=== PATIENT | female | born 1950 | race Caucasian/White ===

== ENCOUNTER 2019-05-19 11:54 | Observation (INO) | payer MEDICARE ==
--- NOTE | 2019-05-12 09:29 | HP ---
AMENDED REPORT NOW INCLUDES DESIGNATED COSIGNER - ESIGNED BEFORE ADJUSTMENTS HISTORY AND PHYSICAL: DATE OF ADMISSION/SURGERY: 05/19/19 DATE OF OFFICE VISIT: 05/11/19 SURGEON: Criselda De León MD * (CHRISTINA STOCK) PROCEDURE: Left total knee arthroplasty. CHIEF COMPLAINT: Left knee pain. HISTORY OF PRESENT ILLNESS: Ms. Edmonds is a 69-year-old female with endstage osteoarthritis of the left knee. She has failed conservative treatment and elected to proceed with the left total knee arthroplasty. PAST MEDICAL HISTORY: History of breast cancer. PAST SURGICAL HISTORY: Lumpectomy bilaterally, cholecystectomy, bladder suspension, urethral sling and hysterectomy. MEDICATIONS: No medications. ALLERGIES: CODEINE. FAMILY HISTORY: Coronary artery disease, cancer, diabetes and stroke. SOCIAL HISTORY: She is a 69-year-old female. She lives with her spouse. She does not smoke. REVIEW OF SYSTEMS: A complete 14-point review of systems was reviewed with the patient and was all negative or noncontributory. She denies history of DVT, PE , hepatitis, HIV or anesthesia problems. PHYSICAL EXAMINATION GENERAL: She is well-developed, well-nourished, in no acute distress. VITAL SIGNS: She weighs 163 pounds, blood pressure 138/62, heart rate 90. HEENT: Normocephalic, atraumatic. NECK: Supple. No palpable lymph nodes. PULMONARY: Lungs are clear to auscultation bilaterally. CARDIO: Regular rate and rhythm. Strong S1 and S2. ABDOMEN: Soft, nontender, nondistended. NEUROLOGIC: She is alert and oriented x3. MUSCULOSKELETAL: Left lower extremity, skin is intact. There are no open wounds or abrasions. There is varus deformity at the left knee with a moderate effusion. Range of motion is 10 to 125 degrees with flexion with patellofemoral crepitus. She has some tenderness along the medial joint line. She is able to dorsiflex and plantarflex. 2+ dorsalis pedis pulses, intact sensation. ASSESSMENT AND PLAN: Ms. Edmonds is a 69-year-old female with end stage osteoarthritis of the left knee. She has failed conservative treatment and elected to proceed with left total knee arthroplasty. Surgery is scheduled for 05/19/[address] De León. Dr. De León discussed the risks and benefits of the surgery at today's visit and all of her questions were answered. She will follow up with Dr. De León 2 weeks after the surgery. CHRISTINA GARCIA [id number]/[facility] #: [id number] [facility]
[~2019-05-19 11:54] MED LIST: Buffered Lidocaine 1% SYRIN* 1 ML/SYRINGE INTRADERM ONE; Dexamethasone IV* 4 MG/ML 1 ML (4 MG) IV SLOW PU ONE; Famotidine IV* 10 MG/ML 2 ML (20 mg) IV ONE; Gabapentin CAP(*) 300 MG PO ONE; Lactated Ringers 1000 ML Bag* 1,000 ML IV SCH; Tranexamic Acid 1,000 MG in NS 0.9% 50 ML IV ONE; celeCOXIB CAP* 200 MG PO ONE
[2019-05-19] MEDS ORDERED: celeCOXIB CAP* 200 MG ONE (12:06)
[2019-05-19] MEDS ORDERED: Gabapentin CAP(*) 300 MG ONE (12:06)
[2019-05-19] MEDS ORDERED: Dexamethasone IV* 4 MG/ML 1 ML (4 MG) ONE (12:06)
[2019-05-19] MEDS ORDERED: ceFAZolin 2 GM in NS PREMIX(*) 2 GM/100 ML BAG IVPB ONE (12:07)
[2019-05-19] MEDS ORDERED: Famotidine IV* 10 MG/ML 2 ML (20 mg) ONE (12:07)
[2019-05-19] MEDS ORDERED: fentaNYL* 50 MCG/ML 2 ML VIAL (100 MCG VIAL) ONE ×2 (13:47→18:54)
[2019-05-19] MEDS ORDERED: Midazolam* 1 MG/ML 5 ML VIAL (5 MG) ONE (13:47)
[2019-05-19] MEDS ORDERED: ROPIVACAINE 5 MG/ML 30 ML BTL (0.5%) ONE ×2 (13:51→14:05)
[2019-05-19] MEDS ORDERED: Bupivacaine 0.5% SDV PF* 30ML VIAL ONE (14:17)
[2019-05-19] MEDS ORDERED: Propofol* 500 MG/50 ML BTL ONE (14:31)
[2019-05-19] MEDS ORDERED: Lidocaine 2% PF * 5 ML VIAL ONE (14:31)
[2019-05-19] MEDS ORDERED: traMADol TAB* 50 MG PO PRN (15:32)
[2019-05-19] MEDS ORDERED: Ondansetron ODT TAB* 4 MG PO PRN (15:32)
[2019-05-19] MEDS ORDERED: Morphine INJ* 2 MG/ML 1 ML SYRINGE (TWO MG - NEW SYRINGE VERSION) IV PRN (15:32)
[2019-05-19] MEDS ORDERED: oxyCODONE TAB* 5 MG TAB PO PRN (15:32)
[2019-05-19] MEDS ORDERED: diPHENhydraMINE PO* 25 MG PO PRN (15:32)
[2019-05-19] MEDS ORDERED: Polyethylene Glycol 3350* 17 GM PACKET PO PRN (15:32)
[2019-05-19] MEDS ORDERED: Cyclobenzaprine TAB* 10 MG PO PRN (15:32)
[2019-05-19] MEDS ORDERED: Ondansetron TAB* 4 MG PO PRN (15:32)
[2019-05-19] MEDS ORDERED: Magnesium Hydroxide LIQ* 30 ML UDC PO PRN (15:32)
[2019-05-19] MEDS ORDERED: Ondansetron INJ* 2 MG/ML VIAL IV PRN ×2 (15:32→18:29)
[2019-05-19] MEDS ORDERED: diPHENhydraMINE IV* 50 MG/ML 1 ml VIAL (BENADRYL) IV PRN (15:32)
--- NOTE | 2019-05-19 17:50 | OP ---
Operative Report - Blank - Operative Report Date of Operation: 05/19/19 Note: MOHINI PETERSON 1950 Date of Surgery: 05/19/19 Criselda De León MD Production Operations Manager: Diane VASQUEZ did help throughout the procedure with preparation of the knee, wound retraction, manipulation of the knee, and wound closure. Anesthesiologist: Dr. Begum Anesthesia Type: Spinal Preoperative Diagnosis: Left severe degenerative osteoarthritis of the knee Postoperative Diagnosis: As above Procedure Performed: Left Total Knee Arthroplasty Tourniquet time: 44 minutes Complications: None Specimen: Bone and cartilage from the left knee joint sent to pathology. Hardware Used: Cemented [employer]hew total knee hardware was used - For the femur a size 4 left narrow legion posterior stabilized femoral component, for the tibia a size 3 left gt II tibial baseplate, for the insert a size 11 mm 3-4 posterior stabilized articular polyethylene insert, and for the patella a size 29 3-peg all poly patella. Brief History/Indication: MOHINI PETERSON was known in clinic and had a history of severe left knee pain and swelling. She failed conservative treatment with anti-inflammatories, pain pills, intra-articular injections and physical therapy. She elected to undergo left total knee arthroplasty due to continued pain and decreased quality of life. Radiographs showed severe end stage osteoarthritis of the knee with bone on bone contact. Informed consent was obtained from the patient. She understood the risks of surgery included but were not limited to: bleeding, infection, damage to nearby structures, intraoperative fracture, nerve palsy, failure of the hardware, early loosening, knee stiffness or loss of motion, anesthesia complications, stroke, heart attack , blood clot and . She wished to proceed. Intra-Operative Findings: Intraoperatively the patient was noted to have severe loss of cartilage in all 3 compartments of the knee. Description of the Procedure: MOHINI PETERSON was identified in the preanesthesia unit. Her left knee was marked as the correct operative side. Informed consent was signed and placed in the chart. The patient was taken to the operating room and placed under anesthesia without complication. A vanegas catheter was placed. A tourniquet was placed on the left thigh. The left lower extremity was prepped and draped in the usual sterile fashion. Preoperative time-out was made to correctly identify the patient, side and site. Appropriate intraoperative antibiotics were given within one hour of incision. Tourniquet was inflated. A midline incision was made and carried sharply down to the extensor mechanism. A new 10 blade was used to make a standard medial parapatellar arthrotomy. The patella was subluxed laterally. Electrocautery was used to dissect soft tissue off the superomedial tibia to the midsagittal plane. The knee was flexed up. The anterior horn of the lateral meniscus and the ACL were sharply incised. A drill was used to enter the distal femur. The intramedullary distal femoral cutting guide was pinned on the distal femur. The oscillating saw was used to make the distal femoral cut. The external rotation guide was pinned on the distal femur and the distal femur was sized to a size 4. The size 4 multi-cutting jig was pinned on the distal femur. The oscillating saw was used to make the appropriate 4 chamfer cuts. Next the PCL was completely released. The extramedullary tibial cutting guide was pinned on the proximal tibia and the oscillating saw was used to make the proximal tibial cut perpendicular to the mechanical axis of the tibia. The bone was carefully removed. The knee was brought out into full extension. The spacer block was placed and had excellent fit with the knee in full extension. The medial and lateral ligaments were well balanced. The flexion and extension gaps were well balanced. The knee was flexed up. Lamina milk condenser was placed both medially and laterally. Any remaining meniscus was removed with electrocautery. Curved osteotome was used to remove any posterior osteophytes. The tibial tray and drop jeremie were placed and confirmed a satisfactory tibial cut. The size 4 left narrow femoral trial was impacted onto the distal femur. This trial had excellent fit and stability. The box for the posterior stabilized implant was prepared using a box cut osteotome and a reamer. Next a tibial tray trial and 9 mm insert trial was placed. The knee was taken through a range of motion and had full extension to 130 degrees of flexion. Patellofemoral tracking was satisfactory. The patella was inverted and sized to a size 29. Three peg holes were drilled through the size 29 drill guide. The trial patella was placed and the knee was taken through a range of motion. There was satisfactory patellofemoral tracking. All trials were removed. The tibia was subluxed anteriorly and sized to a size 3. The proximal tibial was prepared with a size 3 keel punch. All bony cut surfaces were irrigated with sterile saline and dried. Final implants were cemented into place starting with the tibia, followed by the femur, and last the patella. A 11 mm insert trial was placed and the knee was brought into full extension. Tourniquet was turned down and the knee was copiously irrigated with sterile saline. Electrocautery was used to obtain meticulous hemostasis. Once the cement had fully cured, the insert trial was removed. Any excess cement was removed from around the hardware and capsule. Final insert chosen was a 11 mm posterior stabilized Gt II articular insert size 3-4. Stability of the insert was checked and noted to be stable. The extensor mechanism was closed using number 1 vicryls. The rest of the incision was closed in a layered fashion using 0 and 2-0 vicryls. The skin was closed using 3-0 nylon suture. Sterile xeroform, 4x4s and webril were used to cover the incision. Richard wrap and cold pack were used to cover the dressings. The patients anesthesia was reversed without difficulty. She was taken to the PACU in stable condition. Intended weight-bearing will be as tolerated.
[2019-05-19] MEDS ORDERED: hydrALAZINE IV* 20 MG/ML VIAL IV SLOW PU PRN (18:06)
[2019-05-19] MEDS ORDERED: hydrALAZINE IV* 20 MG/ML VIAL ONE (18:06)
[2019-05-19] MEDS ORDERED: HYDROcodone/ACETAMIN 5-325 MG* 1 TAB PO PRN (18:29)
[2019-05-19] MEDS ORDERED: Naloxone* 0.4 MG/ML 1 ML VIAL IV PRN (18:29)
[2019-05-19] MEDS: fentaNYL* 50 MCG/ML 2 ML VIAL (100 MCG VIAL) IV PRN ×2 (18:55→19:59)
--- NOTE | 2019-05-19 19:59 | CONS ---
CC: Dr. Criselda De León; Sammi Villar NP * HOSPITAL MEDICINE CONSULTATION: DATE OF CONSULT: 05/19/19 REQUESTING PROVIDER ON CONSULT: Dr. Criselda De León. PRIMARY CARE PHYSICIAN: Sammi Villar NP. ATTENDING PHYSICIAN: Dr. Sisi Moon. REASON FOR CONSULT: Postoperative hypertension. HISTORY OF PRESENT ILLNESS: Ms. Edmonds is a 69-year-old female with past medical history of breast cancer, status post lumpectomy and radiation, who presents to [facility] today for an elective left total knee arthroplasty. The patient had surgery late today and in the postoperative period was noted to be hypertensive with readings up into the 180s/100s. The patient notes that blood pressure recently has been around 130/70 and this is very consistent for her. She does note that a few days prior to surgery, she did have an elevated blood pressure reading with systolic in the 180s, though this is the first time that she has seen an elevated reading. Of note, the patient did have an abnormal urinalysis on 05/06/19, and was prescribed a 7-day course of Cipro which she has completed at this point. The patient is seen in PACU remaining in the bed. At this time she offers no complaints. She denies any chest pain, shortness of breath, dizziness or headache. She denies any actual pain, but notes that she has some sensation of mild discomfort in her left knee. PAST MEDICAL HISTORY: 1. Bilateral breast cancer, status post lumpectomy and radiation. PAST MEDICAL HISTORY: 1. Bilateral lumpectomy. 2. Cholecystectomy. 3. Urethral sling and hysterectomy. 4. Bladder suspension. HOME MEDICATIONS: None. ALLERGIES: CODEINE. FAMILY HISTORY: The patient reports her father had a history of heart disease and CVA, though he ultimately of brain cancer. She reports a brother with significant heart disease, recently undergoing a bypass surgery. He also has hypertension and diabetes. SOCIAL HISTORY: She lives at home with her . She notes she typically is quite active and tries to maintain a healthy diet. Denies any tobacco, alcohol or recreational drug use. In 2019, she was drinking alcoholic drinks daily though has not had any alcohol since 03/18/19. The patient's , Yash, will be her surrogate decision maker in the event she is unable to make her own decisions. REVIEW OF SYSTEMS: An 11-point review of systems was performed and all the pertinent positive and negative findings are in the HPI. All other systems are negative. PHYSICAL EXAM: General: Ms. Edmonds is a well-developed, well-nourished, middle- aged white female, lying in bed, in no acute distress. She appears her stated age. Vital Signs: Temp 98.1, heart rate 84, respiratory rate 20, oxygen saturation 98% on room air, blood pressure 165/104. HEENT: Head is atraumatic , normocephalic. Visual batres are grossly intact. Pupils are equal, round, and reactive to light and accommodation. Respiratory: Symmetrical chest expansion. Lungs: Clear to auscultation throughout. No rhonchi, wheezes or rales. Cardiovascular: Regular rate and rhythm. S1, S2 present. No murmurs, rubs or gallops. No JVD. Extremities: Skin warm and smooth bilaterally. No edema. No clubbing or cyanosis. Abdomen: Soft, nontender to palpation. Bowel sounds normoactive. Neuro: Awake, alert, and oriented x4. Speech is clear and fluent. Moves all extremities. Skin: There is a surgical dressing intact to the left knee. DIAGNOSTIC STUDIES/LAB DATA: No pertinent data. ASSESSMENT AND PLAN: Ms. Edmonds is a 69-year-old female with past medical history of breast cancer, who presents today for an elective left total knee arthroplasty and was noted to be hypertensive in the postoperative setting. The patient is being admitted by Ortho, and Hospital Medicine will consult for: 1. Status post left total knee arthroplasty. Management per Ortho. 2. Hypertension. The patient is significantly hypertensive in PACU, but does not have any history of hypertension. I suspect that this is related to anxiety and that this is simply a stress response. The patient has had normal blood pressures very recently. She is asymptomatic at this time. I have ordered hydralazine p.r.n. for systolic pressures over 170. First dose will be given by the PACU nurse now. At this point, I will avoid putting her on any oral antihypertensives as I do not anticipate that she will need anything going forward. We will continue to monitor her blood pressure and make any changes if necessary. 2. History of breast cancer: In remission. 3. DVT prophylaxis: Eliquis per Ortho. 4. Code status: Full code. COLLIN FREEDMAN, HAND TOUCH UP PAINTER [id number]/[facility] #: [id number] [facility] HOSPITALGerald
[2019-05-19] MEDS: Docusate CAP* 100 MG PO SCH (21:42)
[2019-05-19] MEDS: Magnesium Hydroxide LIQ* 30 ML UDC PO SCH (21:42)
[2019-05-19] MEDS: oxyCODONE/Acetamin 5/325 MG* TAB PO PRN (21:43)
[2019-05-19] MEDS: Lactated Ringers 1000 ML Bag* 1,000 ML IV SCH (21:44)
[2019-05-19] MEDS: Acetaminophen TAB* 325 MG PO SCH (21:44)
[2019-05-19] MEDS: ceFAZolin 1 GM ADVAN(*) 1 GM in NS 0.9% 50 ML* 50 ML IVPB SCH (22:46)
[2019-05-20] MEDS: oxyCODONE/Acetamin 5/325 MG* TAB PO PRN ×3 (05:12→13:39)
[2019-05-20] MEDS: Acetaminophen TAB* 325 MG PO SCH ×2 (05:50→12:24)
[2019-05-20] MEDS: ceFAZolin 1 GM ADVAN(*) 1 GM in NS 0.9% 50 ML* 50 ML IVPB SCH ×2 (06:08→13:01)
[2019-05-20] MEDS: Lactated Ringers 1000 ML Bag* 1,000 ML IV SCH (06:17)
[2019-05-20 08:10] LABS: Hematocrit 38 % (35-47); Hemoglobin 13.2 g/dL (12.0-16.0); Mean Platelet Volume 8.9 fL (7.4-10.4); Platelet Count 246 10^3/uL (150-450)
[2019-05-20 08:28] LABS: BUN/Creatinine Ratio 25.9 (8-20); Calcium 8.3 mg/dL (8.6-10.3); EGFR African American 135.4 (>60); EGFR Non-African American 111.9 (>60); Potassium 3.7 mmol/L (3.5-5.0)
[2019-05-20] MEDS ORDERED: Vitamin THERAPEUTIC TAB PO SCH (09:00)
[2019-05-20] MEDS ORDERED: Apixaban* 2.5 MG TAB PO SCH (09:00)
[2019-05-20] MEDS: Docusate CAP* 100 MG PO SCH (09:28)
[2019-05-20] MEDS: Magnesium Hydroxide LIQ* 30 ML UDC PO SCH (09:28)
--- NOTE | 2019-05-20 11:33 | DS ---
Orthopedic Discharge Summary - Discharge Summary Date of Admission:05/19/19 Date of Discharge: 05/20/19 Date of Surgery: 05/19/19 Attending Orthopedic Provider: Dr De León Pre-operative Diagnosis: Left knee osteoarthritis Operative Procedure: left total knee replacement Disposition of Patient:home Home care vs Outpatient services: homecare Condition of Patient: stable Pain medication RX at discharge: Percocet 5/325 mg 1-2 q 4 hr MDD 10 DVT prophylaxis RX at discharge: eliquis 2.5 mg bid x 30 days psot op History: MOHINI PETERSON is a 69 year old F with years of increasingly severe left knee pain. Patient has failed conservative management and has elected to undergo a left total knee replacement Hospital Course: MOHINI was admitted to [facility] on 05/19/19. Patient underwent a left total knee replacement without complication followed by a brief recovery in PACU and transfer to the Short Stay Surgical Unit in stable condition. Our hospitalist service, physical therapy and occupational therapy also participated in this patients care. Post-op day 1: patient was alert and in no acute distress. Dressing was clean, dry and intact. Operative extremity dorsiflexion and plantarflexion intact, sensation intact to light touch distally, DP2+. Prior to discharge: dressing was changed, incision was clean, dry and intact. Patient was deemed to be medically and orthopedically stable for discharge. Physical therapy goals were met. Home Medications Medication Instructions Recorded Confirmed Type Acetaminophen TAB* [Tylenol TAB*] 975 mg PO Q8HR tab 05/20/19 Rx Apixaban* [Eliquis*] 2.5 mg PO BID #60 tab 05/20/19 Rx Docusate CAP* [Colace Cap*] 100 mg PO BID PRN #50 cap 05/20/19 Rx oxyCODONE/Acetamin 5/325 MG* 2 tab PO Q4H PRN #60 tab MDD 10 05/20/19 Rx [Percocet 5/325 TAB*] Discharge Instructions following Orthopedic Surgery: Activity: * Weight Bearing as tolerated * Continue physical therapy and occupational therapy exercises as shown * you have elected to have home physical therapy, continue therapy exercises at home. Wound care: * OK to shower on post-op day 3, no bathing, swimming, or submerging wound. * Use gentle soap, pat dry. Cover with gauze, DANGELO wrap or tape. * you elected to have a visiting home nurse, they will perform wound checks. Call Orthopedic office for: * Increased drainage * Redness * Increased pain * Fever Go to ER with shortness of breath or chest pain. Diet: * Regular diet * Increase fluids and fiber to prevent constipation. * Continue to use stool softeners, call office if no bowel motion within 48 hours. Medications See Home Medication List in your packet for medications that you should take after discharge. DVT Prophylaxis: Eliquis Dosin.5 mg, 1 tab every 12 hours x 30 days. Increases bleeding tendency Pain Control: Percocet 5/325 mg 1 tab for moderate pain and 2 tabs for severe pain by mouth every 4 hours as needed. Maximum of 10 tabs per day. Hold for sedation , wean off as soon as pain allows Please note that Percocet contains Tylenol (acetaminophen). Maximum daily dose of Tylenol is 4000 mg from all sources. Antibiotics are required prior to any dental work. FOLLOW UP: Follow up with Dr. Dang] Within [14] days, call for appointment Please call our office with any questions or concerns ([phone]) [facility]
[2019-05-20 11:44] VITALS: BP 128/53
--- NOTE | 2019-05-20 11:48 | PN ---
Progress Note - Progress Note Date of Service: 05/20/19 Note: Pt seen at bedside POD 1 SP LTK. She felt well without complaints and desires DC home. Denies CP, SOB, dizziness, nausea. Appears well, dressing changed incision CDI, df/pf intact, dp2+ distally. Will DC home today if PT goals met.
== END 2019-05-20 11:31 | disposition home or self-care (01) ==
LOC: OR 11:54 → EDSTATUS 15:00 → SSU 15:32
PROVIDERS: ADMIT Physician Assistant; ATTEND Orthopaedic Surgery Adult Reconstructive Orthopaedic Surgery
DX: M17.12 Unilateral primary osteoarthritis, left knee (principal); I10 Essential (primary) hypertension; Z85.3 Personal history of malignant neoplasm of breast; Z88.5 Allergy status to narcotic agent; Z90.13 Acquired absence of bilateral breasts and nipples; Z83.3 Family history of diabetes mellitus; Z82.49 Family history of ischemic heart disease and other diseases of the circulatory system
CPT/HCPCS: 36415; 80048; 85014; 85018; 85049; 86850; 86900; 86901; 96361; 96365; 96366; 96375; 96376; A9270-GY; G0378; J0360; J0690; J1100; J2250; J2405; J2704; J2795; J3010; J3490

== ENCOUNTER 2021-01-30 11:04 | Observation (INO) ==
[2021-01-30 11:48] LABS: ABS Basophils 0.1 10^3/ul (0-0.2); ABS Eosinophils 0.1 10^3/ul (0-0.6); ABS Lymphocytes 1.7 10^3/ul (1.0-4.8); ABS Monocytes 0.4 10^3/ul (0-0.8); ABS Neutrophils 5.6 10^3/ul (1.5-7.7); Eosinophil % 1.1 %; Hematocrit 45 % (35-47); Hemoglobin 15.2 g/dL (12.0-16.0); Lymphocyte % 21.3 %; Mean Corpuscular HGB Conc 34 g/dL (31-36); Mean Corpuscular Hemoglobin 30 pg (27-31); Mean Corpuscular Volume 88 fL (80-97); Mean Platelet Volume 9.1 fL (7.4-10.4); Platelet Count 317 10^3/uL (150-450); Red Blood Count 5.09 10^6 /uL (3.70-4.87); Red Cell Distribution Width 13 % (10-15); White Blood Count 7.8 10^3/uL (3.5-10.8)
[2021-01-30 12:00] LABS: Albumin 4.4 g/dL (3.2-5.2); Albumin/Globulin Ratio 1.4 (1-3); Calcium 9.5 mg/dL (8.6-10.3); Globulin 3.1 g/dL (2-4); Potassium 3.9 mmol/L (3.5-5.0); Total Bilirubin 0.6 mg/dL (0.2-1.0); Total Protein 7.5 g/dL (6.4-8.9)
[2021-01-30 12:23] LABS: INR 1.07 (0.86-1.15)
[2021-01-30 13:52] LABS: Rapid COVID-19 Molecular Undetected (Undetected)
[2021-01-30] MEDS ORDERED: Enoxaparin 40 MG/0.4 ML SYR SUBCUT SCH (18:00)
[2021-01-30] MEDS ORDERED: Metoprolol Tartrate 5 mg VIAL 5 ml VIAL (1 mg/ml) IV PRN (18:41)
[2021-01-30] MEDS ORDERED: Enoxaparin 30 MG/0.3 ML SYR SUBCUT ONE (21:53)
[2021-01-30] MEDS ORDERED: NS 0.9% 1000 ml BAG 1,000 ML IV SCH (23:55)
[2021-01-31] MEDS ORDERED: Metoprolol Tartrate 5 mg VIAL 5 ml VIAL (1 mg/ml) IV PRN (06:13)
[2021-01-31] MEDS ORDERED: diPHENhydraMINE 25 mg TAB PO PRN (08:00)
[2021-01-31] MEDS ORDERED: Aspirin EC 81 mg TAB.EC (enteric coated) PO SCH (09:00)
[2021-01-31] MEDS ORDERED: Enoxaparin 80 MG/0.8 ML SYR SUBCUT SCH (10:00)
[2021-01-31] MEDS ORDERED: VERAPAMIL 2.5 MG/ML 2 ML VIAL ** 5 mg/2 ml ONE (14:46)
[2021-01-31] MEDS ORDERED: Midazolam 5 mg/5 ml VIAL 1 mg/ml 5 ml VIAL (5 mg) ONE (14:46)
[2021-01-31] MEDS ORDERED: fentaNYL 100 mcg/2 ml 50 MCG/ML VIAL ONE (14:46)
[2021-01-31] MEDS ORDERED: Iohexol 350 (CONTRAST) 200 ML MDV IV ONE ×2 (14:47→15:24)
[2021-01-31] MEDS ORDERED: Heparin 1,000 UNIT/ML 10 ml (10,000 UNITS) CATHLAB/DIALYSIS ONE (14:47)
[2021-01-31] MEDS ORDERED: Lidocaine 1% VIAL 10 MG/ML VIAL ONE (14:47)
[2021-01-31] MEDS ORDERED: nitroGLYCERIN DRIP 25,000 MCG/250 ML BTL ONE (14:47)
[2021-01-31] MEDS ORDERED: diPHENhydraMINE 25 mg TAB ONE (14:51)
[2021-01-31] MEDS ORDERED: diPHENhydraMINE 25 mg TAB PO ONE (15:00)
[2021-01-31] MEDS ORDERED: Heparin 5000 UNITS/ML 1 mL VIAL IV SCH (16:00)
[2021-01-31] MEDS ORDERED: Heparin DRIP 25,000 UNITS BAG 25,000 UNITS/500 ML BAG IV SCH (16:00)
[2021-01-31] MEDS ORDERED: Heparin DRIP 25,000 UNITS BAG 25,000 UNITS/500 ML BAG ONE (16:25)
[2021-01-31] MEDS ORDERED: Heparin - STEMI 5,000 UNITS/ML 1 ml VIAL IV ONE (16:31)
[2021-01-31 17:08] VITALS: BP 166/79
== END 2021-01-31 16:20 | disposition short-term general hospital (02) ==
LOC: ED 11:04 → EDHOLD 11:04 → SUATTDRO 17:29 → MEDTELE 19:51
PROVIDERS: ADMIT Internal Medicine; ATTEND Student in an Organized Health Care Education/Training Program

== ENCOUNTER 2024-04-23 05:35 | Observation (INO) ==
[~2024-04-23 05:35] MED LIST changes: -Buffered Lidocaine 1% SYRIN* 1 ML/SYRINGE INTRADERM ONE; -Dexamethasone IV* 4 MG/ML 1 ML (4 MG) IV SLOW PU ONE; -Famotidine IV* 10 MG/ML 2 ML (20 mg) IV ONE; -Gabapentin CAP(*) 300 MG PO ONE; -Lactated Ringers 1000 ML Bag* 1,000 ML IV SCH; +Naloxone 0.4 mg VIAL 0.4 mg/ml 1 ml VIAL IV PRN; -Tranexamic Acid 1,000 MG in NS 0.9% 50 ML IV ONE; -celeCOXIB CAP* 200 MG PO ONE; +fentaNYL 100 mcg/2 ml 50 MCG/ML VIAL IV PRN
[2024-04-23] MEDS: Buffered Lidocaine 1% SYRIN 1 ml INTRADERM ONE (05:55)
[2024-04-23] MEDS ORDERED: ROPIVACAINE 5 MG/ML 30 ML BTL (0.5%) ONE (05:58)
[2024-04-23] MEDS ORDERED: ceFAZolin 2 GM PREMIX 2 GM/50 ML BAG ONE (05:59)
[2024-04-23] MEDS ORDERED: Famotidine IV 10 MG/ML 2 ml VIAL (20 mg) ONE (05:59)
[2024-04-23] MEDS ORDERED: Tranexamic Acid 1 GM/100ML BAG 2,000 MG/200 ML BAG IV ONE (05:59)
[2024-04-23] MEDS: Lactated Ringers 1000 ml BAG 1,000 ML IV SCH ×2 (06:10→11:13)
[2024-04-23] MEDS: Famotidine IV 10 MG/ML 2 ml VIAL (20 mg) IV ONE (06:10)
[2024-04-23 06:37] LABS: Rapid COVID-19 Molecular Undetected (Undetected)
[2024-04-23] MEDS ORDERED: fentaNYL 100 mcg/2 ml 50 MCG/ML VIAL ONE (07:08)
[2024-04-23] MEDS ORDERED: Midazolam 2 mg/2 ml VIAL 1 mg/ml 2 ml VIAL (2 mg) ONE (07:08)
[2024-04-23] MEDS ORDERED: Ondansetron 4 mg VIAL 2 MG/ML 2 ml VIAL ONE ×2 (09:42→10:10)
[2024-04-23] MEDS ORDERED: Dexamethasone IV 4 MG/ML VIAL 1 ml VIAL ONE (09:42)
[2024-04-23] MEDS ORDERED: Magnesium Hydroxide LIQ 30 ML UDC PO PRN (09:56)
[2024-04-23] MEDS ORDERED: Ondansetron 4 mg VIAL 2 MG/ML 2 ml VIAL IV PRN (09:56)
[2024-04-23] MEDS ORDERED: Ondansetron ODT 4 mg TAB 4 MG TAB PO PRN (09:56)
[2024-04-23] MEDS ORDERED: Calcium Carb (TUMS) 500 mg CHEW TAB PO PRN (09:56)
[2024-04-23] MEDS ORDERED: Morphine 2 MG/ML SYRINGE IV PRN (09:56)
[2024-04-23] MEDS ORDERED: Lactulose 30 ml UDC PO PRN (09:56)
[2024-04-23] MEDS: Ondansetron 4 mg VIAL 2 MG/ML 2 ml VIAL IV PRN (10:18)
[2024-04-23] MEDS: Scopolamine 1 mg/72hr PATCH ONE (13:02)
[2024-04-23] MEDS: Scopolamine 1 mg/72hr PATCH TRANSDERM SCH (13:02)
[2024-04-23] MEDS: Prochlorperazine 5 mg/ml 2 ml VIAL (10 mg) ONE (13:02)
[2024-04-23] MEDS: Prochlorperazine 5 mg/ml 2 ml VIAL (10 mg) IV PRN (13:55)
[2024-04-23] MEDS: ceFAZolin 2 GM PREMIX 2 GM/50 ML BAG IV SCH (16:40)
[2024-04-23] MEDS: Magnesium Hydroxide LIQ 30 ML UDC PO SCH (20:47)
[2024-04-24 05:37] LABS: Hematocrit 38.7 % (35-45); Hemoglobin 12.9 g/dL (11.5-14.3); Mean Platelet Volume 9.2 fL (7.5-11.2); Platelet Count 235 10^3/uL (150-450)
[2024-04-24 05:57] LABS: Creatinine, Serum 0.78 mg/dL (0.51-0.95); Potassium 3.9 mmol/L (3.5-5.0); eGFR CKD-EPI 79.7 (>60)
[2024-04-24] MEDS: Vitamin THERAPEUTIC TAB PO SCH (08:37)
[2024-04-24 13:34] VITALS: BP 123/46
== END 2024-04-24 14:08 | disposition home or self-care (01) ==
LOC: OR 05:35 → SSU 05:35
PROVIDERS: ADMIT Orthopaedic Surgery Adult Reconstructive Orthopaedic Surgery; ATTEND Orthopaedic Surgery Adult Reconstructive Orthopaedic Surgery